=== PATIENT | female | born 1970 | race Caucasian/White ===

== ENCOUNTER → 2025-02-08 | Outpatient (CLI) | payer BC ==
[~2025-02-08] MED LIST: AFRIN NAS; AMOXICILLIN500 MG PO; COQ1030 MG PO; FERROUS SULFAT325 MG PO; FLONASE 0.05% 121 EA NAS; HYDRODIURIL25 MG PO; Hydralazine Hyd25 MG PO; METFORMIN1000 MG PO; NEXIUM20 MG PO; PRAVACHOL40 MG PO; PROZAC10 MG PO; QUINAPRIL40 MG PO; TIAZAC240 MG PO; TIAZAC360 MG PO; VITAMIN B COMPL1 CAP PO; ZITHROMAX Z PA250 MG PO; ZYRTEC10 MG PO
== END | disposition home or self-care (01) ==
LOC: MAMMO 09:30
PROVIDERS: ATTEND Nurse Practitioner Women's Health
DX: Z12.31 Encounter for screening mammogram for malignant neoplasm of breast (principal)